=== PATIENT | male | born 1980 | race Caucasian/White ===

== ENCOUNTER 2017-04-01 10:10 | Emergency (ER) | payer SELFPAY ==
[~2017-04-01] VITALS: Ht 180.3 cm; Wt 130.0 kg
[2017-04-01 10:16] VITALS: Ht 180.3 cm; Wt 130.0 kg
[2017-04-01] MEDS ORDERED: PSEU30TA38 PO (10:45)
[2017-04-01] MEDS ORDERED: BENZ100C70 PO (10:45)
--- NOTE | 2017-04-01 14:37 | ERD ---
ER Documentation Chief Complaint Date/Time DATE: 04/01/17 TIME: 14:32 Chief Complaint flu like symptoms x 1 week, sinus villa x 2 days HPI 36-year-old male coming in complaining of sinus congestion 1 week. Patient states that he has a sinus headache localized in the frontal region of his head. Patient denies any dizziness. Denies vomiting. Denies fever. Has taken Advil cold and sinus with no alleviation of symptoms. No sick contacts at home. Denies fever. Denies chest pain. Denies vomiting. Denies change in urination or bowel movement. Medical problems denies Allergies medication: Ancef, Demerol Surgeries denies Smoking denies ROS All systems reviewed and are negative except as per history of present illness. Medications Home Meds Active Scripts Benzonatate* (Tessalon Perle*) 100 Mg Capsule, 100 MG PO Q8H Y for COUGH, #30 CAP Prov:FLORENTINO EMERSON PA-C 04/01/17 Pseudoephedrine Hcl* (Pseudoephedrine Hcl*) 30 Mg Tablet, 30 MG PO Q6 Y for CONGESTION, #30 TAB Prov:FLORENTINO EMERSON PA-C 04/01/17 PMhx/Soc Medical and Surgical Hx: pt denies Medical Hx, pt denies Surgical Hx History of Surgery: No Anesthesia Reaction: No Hx Neurological Disorder: No Hx Respiratory Disorders: No Hx Cardiac Disorders: No Hx Psychiatric Problems: No Hx Miscellaneous Medical Probl: No Hx Alcohol Use: Yes (OOC) Hx Substance Use: No Hx Tobacco Use: No Smoking Status: Never smoker Physical Exam Vitals Vital Signs Date Time Temp Pulse Resp B/P Pulse Ox O2 Delivery O2 Flow Rate FiO2 04/01/17 10:16 98.1 78 20 118/66 9 Physical Exam Head: Atraumatic Eyes: Normal Conjunctiva ENT: Normal External Ears, Nose and Mouth. Neck: Full range of motion..~ No meningismus. Resp: Clear to auscultation bilaterally Cardio: Regular rate and rhythm, no murmurs Skin: No petechiae or rashes Procedures/MDM MDM: 36-year-old male complaining of sinus congestion. low suspicion for bacterial sinus infection. Patient does not have pain over the sinuses. low suspicion for bacterial oral infection. Patient exam is not concerning. I have low suspicion for intracranial hemorrhage, mass-effect or neurodeficit. Patient exam was not concerning. Low suspicion for PNA. Patient's exam and vitals are within normal limits. Patient is discharged with medication and recommend follow-up with primary care doctor within 1 to days for close evaluation. All other questions answered at time of discharge Departure Diagnosis: Primary Impression: Upper respiratory infection Condition: Stable Patient Instructions: Uri, Viral, No Abx (Adult) Referrals: [facility] YOU HAVE RECEIVED A MEDICAL SCREENING EXAM AND THE RESULTS INDICATE THAT YOU DO NOT HAVE A CONDITION THAT REQUIRES URGENT TREATMENT IN THE EMERGENCY DEPARTMENT. FURTHER EVALUATION AND TREATMENT OF YOUR CONDITION CAN WAIT UNTIL YOU ARE SEEN IN YOUR DOCTORS OFFICE WITHIN THE NEXT 1-2 DAYS. IT IS YOUR RESPONSIBILITY TO MAKE AN APPOINTMENT FOR FOLOW-UP CARE. IF YOU HAVE A PRIMARY DOCTOR --you should call your primary doctor and schedule an appointment IF YOU DO NOT HAVE A PRIMARY DOCTOR YOU CAN CALL OUR PHYSICIAN REFERRAL HOTLINE AT IF YOU CAN NOT AFFORD TO SEE A PHYSICIAN YOU CAN CHOSE FROM THE FOLLOWING [facility] [address] [facility] [address] [facility] [facility] [address] [facility] [address] [facility] [address] [facility] [facility] [address] Additional Instructions: FOLLOW UP WITH YOUR PRIMARY CARE PHYSICIAN TOMORROW.Return to this facility if you are not improving as expected. FLORENTINO EMERSON PA-C Apr 01, 2017 14:37
== END 2017-04-01 10:56 | disposition home or self-care (01) ==
LOC: FTE 10:10
DX: J06.9 Acute upper respiratory infection, unspecified (principal)
CPT/HCPCS: 99283